=== PATIENT | male | born 1980 | race African-American/Black ===

== ENCOUNTER 2016-10-02 15:08 | Emergency (ER) | payer OTHER ==
[~2016-10-02] VITALS: Ht 180.3 cm; Wt 77.6 kg
[~2016-10-02 15:08] MED LIST: BLOO-125 IN; INSU100V28 SQ; INSU100V28 SUBCUT; NPH,100V2 SUBCUT
--- NOTE | 2016-10-02 15:27 | NUR ---
PT ELOPED AFTER PHYSICIAN NOTIFIED PT THAT HE WILL NOT BE RECEIVING ANY NARCOTICS. MD COUGHLIN IS AWARE.
[2016-10-02] MEDS ORDERED: LIDOCAINE VISCUS 2% 15 ML UDC MM ONE (15:30)
[2016-10-02] MEDS ORDERED: MAG HYDROX/AL HYDROX/SIMETH 30 ML LIQUID UDC PO ONE (15:30)
[2016-10-02] MEDS ORDERED: ONDANSETRON ODT 4 MG TAB.RAPDIS SL ONE (15:30)
[2016-10-02] MEDS ORDERED: FAMOTIDINE 20 MG TABLET PO ONE (15:30)
--- NOTE | 2016-10-02 15:34 | NUR ---
Patient eloped from facility. ER physician notified. Pt is ambulatory with steady gait. Speaking in full sentences. NAD noted.
[2016-10-02] MEDS ORDERED: ONDANSETRON ODT 4 MG TAB.RAPDIS ONE (15:36)
[2016-10-02] MEDS ORDERED: LIDOCAINE VISCUS 2% 15 ML UDC ONE (15:36)
[2016-10-02] MEDS ORDERED: MAG HYDROX/AL HYDROX/SIMETH 30 ML LIQUID UDC ONE (15:36)
[2016-10-02] MEDS ORDERED: FAMOTIDINE 20 MG TABLET ONE (15:36)
== END 2016-10-02 15:34 | disposition left against medical advice (07) ==
LOC: ER 15:10
DX: R10.9 Unspecified abdominal pain (principal)
CPT/HCPCS: A4663; Q0162

== ENCOUNTER 2017-07-07 10:21 | Emergency (ER) | payer OTHER ==
[~2017-07-07] VITALS: Ht 180.3 cm; Wt 77.6 kg
--- NOTE | 2017-07-07 10:27 | NUR ---
Dr Prescott at the bedside for MSE.
--- NOTE | 2017-07-07 10:35 | NUR ---
Pt states not wanting to continue w/ care as his discussion w/ ER MD. Left ER w/ steady gait and in no acute distres after argueing w/ MD.
[2017-07-07 10:40] VITALS: BP 152/96
== END 2017-07-07 10:40 | disposition home or self-care (01) ==
LOC: ER 10:21
DX: R10.84 Generalized abdominal pain (principal); E11.9 Type 2 diabetes mellitus without complications; F12.10 Cannabis abuse, uncomplicated; Z79.4 Long term (current) use of insulin; Z79.899 Other long term (current) drug therapy
CPT/HCPCS: A4663

== ENCOUNTER 2020-10-23 08:06 | Emergency (ER) | payer OTHER ==
[~2020-10-23] VITALS: Ht 180.3 cm; Wt 79.4 kg
[2020-10-23] MEDS ORDERED: ONDANSETRON 4 MG/2 ML VIAL IV ONE (08:30)
[2020-10-23] MEDS ORDERED: HYDROMORPHONE 1 MG/1 ML DISP.SYRIN IV ONE ×2 (08:30→10:25)
[2020-10-23] MEDS ORDERED: IV NORMAL SALINE 1000 ML BAG IV ONE (08:30)
--- NOTE | 2020-10-23 08:30 | NUR ---
Dr Sofia Grullon at bedside for MSE
[2020-10-23 08:31] LABS: HEMATOCRIT 39.3 % (36.7-47.1); MEAN CORPUSCULAR HEMOGLOBIN 31.3 uug (23.8-33.4); MEAN CORPUSCULAR VOLUME 92.9 fL (73.0-96.2); PLATELET COUNT (AUTO) 200 K/uL (152-348)
[2020-10-23 08:33] LABS: *BILIRUBIN,URIN NEGATIVE (NEGATIVE); *CLARITY,URINE CLEAR (CLEAR); *COLOR,URINE YELLOW (YELLOW); *KETONES,URINE NEGATIVE (NEGATIVE); *UROBILINOGEN,URINE 0.2 E.U./dl (NORMAL); LEUKOCYTE ESTERASE ,URINE NEGATIVE (NEGATIVE); NITRITE, URINE NEGATIVE (NEGATIVE); UGLUCOSE 2+ (NEGATIVE)
[2020-10-23] MEDS ORDERED: ONDANSETRON 4 MG/2 ML VIAL ONE (08:33)
[2020-10-23] MEDS ORDERED: HYDROMORPHONE 1 MG/1 ML DISP.SYRIN ONE ×2 (08:34→10:26)
[2020-10-23 08:41] LABS: *BLOOD, URINE TRACE (NEGATIVE)
[2020-10-23] MEDS ORDERED: IOHEXOL 300MG/ML 100 ML INFUS..BTL ONE (08:58)
[2020-10-23 08:59] LABS: BILIRUBIN,DIRECT 0.1 mg/dL (0.0-0.2); BILIRUBIN,TOTAL 0.2 mg/dL (0.2-1.0); CREATININE 1.2 mg/dL (0.6-1.3); POTASSIUM 4.1 mmol/L (3.5-5.1)
[2020-10-23] MEDS ORDERED: KETOROLAC TROMETHAMINE 15 MG INJ ONE (10:08)
[2020-10-23] MEDS ORDERED: INSULIN REGULAR, HUMAN 300 UNIT/3 ML VIAL SQ ONE (10:15)
[2020-10-23] MEDS ORDERED: KETOROLAC TROMETHAMINE 15 MG INJ IVP ONE (10:15)
[2020-10-23] MEDS ORDERED: INSULIN LISPRO 300 UNIT/3 ML VIAL SQ ONE (10:27)
[2020-10-23] MEDS ORDERED: INSULIN REGULAR, HUMAN 300 UNIT/3 ML VIAL ONE (10:28)
[2020-10-23 10:45] LABS: BACTERIA,URINE NONE SEEN /HPF (NONE SEEN); SQUAMOUS EPITHELIAL CELL,UR NONE SEEN /HPF (NONE SEEN); WBC,URINE NONE SEEN /HPF (0-3)
--- NOTE | 2020-10-23 10:45 | NUR ---
Pt's first dose of Dilaudid was effective for 1.5 hours, and patient started feeling pain. So, Toradol 15 mg PIV was ordered, no relief. Second dose of Dilaudid given as ordered. Pt stated feeling relief at this time. MD was at bedside explaining results of CT Scan.
[2020-10-23 10:46] LABS: RBC,URINE 0-3 /HPF (0-3)
[2020-10-23] MEDS ORDERED: ONDA4TAB5 PO (10:48)
[2020-10-23] MEDS ORDERED: HYDR-3980 PO (10:48)
--- NOTE | 2020-10-23 11:01 | NUR ---
Pt has been cleared for DC by ER MD. Patient discharged to home in stable condition. IV removed. Catheter intact and site benign. Pressure and 4x4 gauze applied to site. No bleeding noted. Written and verbal after care instructions given. Patient verbalizes understanding of instructions. Stressed follow up or return to ER for worsening s/s. Ambulated out of ED in steady gait.
[2020-10-23 11:04] VITALS: BP 135/70
== END 2020-10-23 11:10 | disposition home or self-care (01) ==
LOC: ER 08:06
DX: K86.1 Other chronic pancreatitis (principal); R10.13 Epigastric pain; R11.2 Nausea with vomiting, unspecified; E10.65 Type 1 diabetes mellitus with hyperglycemia
CPT/HCPCS: 36415; 74177; 80048; 80076; 81001; 82962; 83605; 83690; 85025; 96361; 96372; 96374; 96375; 96376; 99285; J1170 ×2; J1815; J1885; J2405; Q9967; A4663; J7030

== ENCOUNTER 2020-11-03 05:00 | Emergency (ER) | payer OTHER ==
[~2020-11-03] VITALS: Ht 180.3 cm; Wt 73.0 kg
[~2020-11-03 05:00] MED LIST changes: +HYDR-3980 PO; +ONDA4TAB5 PO
--- NOTE | 2020-11-03 05:05 | NUR ---
Patient came in with c/o abdominal pain with n/v. Patient states pain woke him up about 45mins [employer]. Has Hx of pancreatitis. PL:02/09. A/O x4, no SOB or labored breathing, afebrile.
--- NOTE | 2020-11-03 05:14 | NUR ---
Dr. Cintron at bedside, MSE in progress.
[2020-11-03] MEDS ORDERED: HYDROMORPHONE 1 MG/1 ML DISP.SYRIN IV ONE (05:30)
[2020-11-03] MEDS ORDERED: IV NORMAL SALINE 1000 ML BAG IV ONE (05:30)
[2020-11-03] MEDS ORDERED: IV NORMAL SALINE 250 ML IV ONE (05:39)
[2020-11-03] MEDS ORDERED: SWABABLE VALVE TRANSFER SET EA MC ONE (05:39)
[2020-11-03] MEDS ORDERED: IOHEXOL 300MG/ML 100 ML INFUS..BTL ONE (05:39)
[2020-11-03] MEDS ORDERED: HYDROMORPHONE 1 MG/1 ML DISP.SYRIN ONE (05:41)
[2020-11-03 05:42] LABS: HEMATOCRIT 46.7 % (36.7-47.1); MEAN CORPUSCULAR HEMOGLOBIN 31.1 uug (23.8-33.4); MEAN CORPUSCULAR VOLUME 94.5 fL (73.0-96.2); PLATELET COUNT (AUTO) 216 K/uL (152-348)
[2020-11-03] MEDS ORDERED: PROCHLORPERAZINE EDISYLATE 10 MG/2 ML VIAL IV ONE (05:45)
--- NOTE | 2020-11-03 05:46 | NUR ---
Pt taken down for CT.
[2020-11-03] MEDS ORDERED: PROCHLORPERAZINE EDISYLATE 10 MG/2 ML VIAL ONE (05:50)
[2020-11-03 05:55] LABS: BILIRUBIN,DIRECT 0.2 mg/dL (0.0-0.2); BILIRUBIN,TOTAL 0.6 mg/dL (0.2-1.0); CREATININE 1.5 mg/dL (0.6-1.3); POTASSIUM 4.4 mmol/L (3.5-5.1); TOTAL PROTEIN, SERUM 8.3 g/dL (6.4-8.2)
--- NOTE | 2020-11-03 06:03 | NUR ---
Pt returned from CT, stable condition.
[2020-11-03] MEDS ORDERED: PROC10TA29 PO (06:14)
[2020-11-03] MEDS ORDERED: HYDR-3980 PO (06:14)
[2020-11-03] MEDS ORDERED: METO-295 PO (06:14)
[2020-11-03] MEDS ORDERED: METOCLOPRAMIDE HCL 10 MG/2 ML VIAL IV ONE (06:15)
[2020-11-03] MEDS ORDERED: METOCLOPRAMIDE HCL 10 MG/2 ML VIAL ONE (06:22)
[2020-11-03 06:46] VITALS: BP 124/65
--- NOTE | 2020-11-03 06:46 | NUR ---
Patient discharged to home in stable condition. Written and verbal after care instructions given. Patient verbalizes understanding of instructions. Stressed follow up or return to ER for worsening s/s. A/O x4, denies any pain/discomfort at this time. Steady gait.
== END 2020-11-03 06:47 | disposition home or self-care (01) ==
LOC: ER 05:01
DX: E10.43 Type 1 diabetes mellitus with diabetic autonomic (poly)neuropathy (principal); K31.84 Gastroparesis; Z79.4 Long term (current) use of insulin; G89.29 Other chronic pain; R10.9 Unspecified abdominal pain
CPT/HCPCS: 36415; 74177; 80048; 80076; 83690; 85025; 96361; 96374; 96375; 99285; J0780; J1170; J2765; Q9967; 72193; A4663; J7030; J7050

== ENCOUNTER 2020-11-04 09:38 | Emergency (ER) | payer OTHER ==
[~2020-11-04] VITALS: Ht 180.3 cm; Wt 72.6 kg
[~2020-11-04 09:38] MED LIST changes: +METO-295 PO; +PROC10TA29 PO
[2020-11-04] MEDS ORDERED: ONDANSETRON 4 MG/2 ML VIAL IM ONE (10:00)
[2020-11-04] MEDS ORDERED: HYDROMORPHONE 1 MG/1 ML DISP.SYRIN IM ONE (10:00)
--- NOTE | 2020-11-04 10:00 | NUR ---
DR BATRES AT BEDSIDE FOR EVAL.
[2020-11-04] MEDS ORDERED: ONDANSETRON 4 MG/2 ML VIAL ONE (10:06)
[2020-11-04] MEDS ORDERED: HYDROMORPHONE 2 MG/1 ML DISP.SYRIN ONE (10:06)
--- NOTE | 2020-11-04 10:53 | NUR ---
Patient discharged to home in stable condition. Written and verbal after care instructions given. Patient verbalizes understanding of instructions. Stressed follow up or return to ER for worsening s/s.pt walks in steady gait. pt not driving
[2020-11-04 10:54] VITALS: BP 131/78
== END 2020-11-04 10:55 | disposition home or self-care (01) ==
LOC: ER 09:38
DX: K86.1 Other chronic pancreatitis (principal); E10.8 Type 1 diabetes mellitus with unspecified complications; Z79.4 Long term (current) use of insulin
CPT/HCPCS: 96372; 99283; J1170; J2405; A4663

== ENCOUNTER 2020-11-13 10:06 | Emergency (ER) | payer OTHER ==
[~2020-11-13] VITALS: Ht 180.3 cm; Wt 74.8 kg
[2020-11-13] MEDS ORDERED: HYDROMORPHONE 2 MG/1 ML DISP.SYRIN ONE ×2 (10:29→11:18)
[2020-11-13] MEDS ORDERED: ONDANSETRON 4 MG/2 ML VIAL ONE ×2 (10:29→11:19)
[2020-11-13] MEDS ORDERED: ONDANSETRON 4 MG/2 ML VIAL IV ONE ×2 (10:30→11:15)
[2020-11-13] MEDS ORDERED: IV NORMAL SALINE 1000 ML BAG IV ONE (10:30)
[2020-11-13] MEDS ORDERED: HYDROMORPHONE 1 MG/1 ML DISP.SYRIN IV ONE ×2 (10:30→11:15)
[2020-11-13 10:52] LABS: HEMATOCRIT 41.3 % (36.7-47.1); MEAN CORPUSCULAR HEMOGLOBIN 31.4 uug (23.8-33.4); PLATELET COUNT (AUTO) 187 K/uL (152-348)
[2020-11-13 11:02] LABS: CREATININE 1.1 mg/dL (0.6-1.3); POTASSIUM 4.4 mmol/L (3.5-5.1)
[2020-11-13 11:09] LABS: BILIRUBIN,DIRECT 0.1 mg/dL (0.0-0.2); BILIRUBIN,TOTAL 0.2 mg/dL (0.2-1.0); TOTAL PROTEIN, SERUM 6.2 g/dL (6.4-8.2)
--- NOTE | 2020-11-13 11:25 | NUR ---
Patient discharged to home in stable condition. Written and verbal after care instructions given. Patient verbalizes understanding of instructions. Stressed follow up or return to ER for worsening s/s. pt walks in steady gait. pt used uber for ride home.
[2020-11-13 11:26] VITALS: BP 129/81
== END 2020-11-13 11:26 | disposition home or self-care (01) ==
LOC: ER 10:06
DX: E10.65 Type 1 diabetes mellitus with hyperglycemia (principal); Z79.4 Long term (current) use of insulin; Z83.3 Family history of diabetes mellitus; G89.29 Other chronic pain; R10.13 Epigastric pain
CPT/HCPCS: 36415; 80048; 80076; 83690; 85025; 96361; 96374; 96375; 96376; 99284; J1170 ×2; J2405 ×2; A4663; J7030

== ENCOUNTER 2020-11-29 10:49 | Emergency (ER) | payer OTHER ==
[~2020-11-29] VITALS: Ht 180.3 cm; Wt 74.8 kg
--- NOTE | 2020-11-29 10:49 | NUR ---
PT BIB [facility] C/O ABDOMINAL PAIN, ON ARRIVAL PT SCREAMING, ACTING RESTLESS AND LOOKING AROUND TO SEE WHO ARE THE STAFF AND ASKED WHO IS THE DR TODAY, WHICH IS PT'S USUAL BEHAVIOR WHEN HE COMES TO ER ON MULTIPLE PREVIOUS VISITS.
--- NOTE | 2020-11-29 11:20 | NUR ---
pt screaming, threatening and acting bizzare to get iv narcotics. Er md at bedside.
[2020-11-29] MEDS ORDERED: HYDROCODONE/APAP 10-325 MG TABLET ONE (11:25)
--- NOTE | 2020-11-29 11:25 | NUR ---
PT ELOPED, PT WALKS IN STEADY GAIT, WALKING NORMALLY.
[2020-11-29] MEDS ORDERED: HYDROCODONE/APAP 10-325 MG TABLET PO ONE (11:30)
--- NOTE | 2020-11-29 11:32 | NUR ---
PT WALKED BACK IN THE ROOM WALKING NORMALLY, NO SIGHN OF DISTRESS, LOOKING FOR HIS HAT. PT MENTIONED THAT HE IS GOING TO HIS WORK.
== END 2020-11-29 11:32 | disposition left against medical advice (07) ==
LOC: ER 10:49
DX: G89.29 Other chronic pain (principal); R10.9 Unspecified abdominal pain; Z79.4 Long term (current) use of insulin; Z83.3 Family history of diabetes mellitus; E10.9 Type 1 diabetes mellitus without complications
CPT/HCPCS: A4663; J7030

== ENCOUNTER 2020-12-08 08:04 | Emergency (ER) | payer OTHER ==
[~2020-12-08] VITALS: Ht 180.3 cm; Wt 74.8 kg
--- NOTE | 2020-12-08 08:17 | NUR ---
PT ASKED WHO THE DOCTOR IS FOR THE DAY, AND WAS INFORMED IT IS DR GONSALES, WHO COINCIDENTALLY SAW HIM 11/29/20 - SIMILAR EPISODE - ABD PAIN, BROUGHT IN BY RESCUE-; PT DECIDED THEN AND STATED THAT HE IS FEELING BETTER AND WALKED OUT.
== END 2020-12-08 08:23 | disposition left against medical advice (07) ==
LOC: ER 08:04
DX: Z53.21 Procedure and treatment not carried out due to patient leaving prior to being seen by health care provider (principal)

== ENCOUNTER 2020-12-10 08:26 | Emergency (ER) | payer OTHER ==
[~2020-12-10] VITALS: Ht 175.3 cm; Wt 70.8 kg
[2020-12-10] MEDS ORDERED: HYDROMORPHONE 1 MG/1 ML DISP.SYRIN IV ONE (08:30)
[2020-12-10] MEDS ORDERED: IV NORMAL SALINE 1000 ML BAG IV ONE (08:30)
[2020-12-10] MEDS ORDERED: ONDANSETRON 4 MG/2 ML VIAL IV ONE (08:30)
[2020-12-10 08:43] LABS: HEMATOCRIT 39.5 % (36.7-47.1); MEAN CORPUSCULAR HEMOGLOBIN 31.5 uug (23.8-33.4); MEAN CORPUSCULAR VOLUME 93.2 fL (73.0-96.2); PLATELET COUNT (AUTO) 191 K/uL (152-348)
[2020-12-10] MEDS ORDERED: IV NS 1000 ML 1,000 ML IV ONE (08:45)
[2020-12-10] MEDS ORDERED: ONDANSETRON 4 MG/2 ML VIAL ONE (08:47)
[2020-12-10] MEDS ORDERED: HYDROMORPHONE 2 MG/1 ML DISP.SYRIN ONE (08:47)
[2020-12-10 08:48] LABS: CREATININE 1.3 mg/dL (0.6-1.3)
[2020-12-10 08:54] LABS: BILIRUBIN,DIRECT 0.1 mg/dL (0.0-0.2); BILIRUBIN,TOTAL 0.3 mg/dL (0.2-1.0); TOTAL PROTEIN, SERUM 6.8 g/dL (6.4-8.2)
[2020-12-10] MEDS ORDERED: INSULIN GLARGINE,HUM 300 UNITS/3 ML CARTRIDGE SQ SCH (09:15)
[2020-12-10] MEDS ORDERED: INSULIN GLARGINE,HUM 300 UNITS/3 ML CARTRIDGE SQ ONE (09:28)
[2020-12-10 09:35] LABS: *BILIRUBIN,URIN NEGATIVE (NEGATIVE); *CLARITY,URINE CLEAR (CLEAR); *COLOR,URINE YELLOW (YELLOW); *KETONES,URINE NEGATIVE (NEGATIVE); *UROBILINOGEN,URINE 0.2 E.U./dl (NORMAL); LEUKOCYTE ESTERASE ,URINE NEGATIVE (NEGATIVE); NITRITE, URINE NEGATIVE (NEGATIVE)
[2020-12-10 09:38] LABS: *BLOOD, URINE TRACE (NEGATIVE); UGLUCOSE 3+ (NEGATIVE)
[2020-12-10] MEDS ORDERED: HYDR-3980 PO (09:58)
[2020-12-10] MEDS ORDERED: PROC-11 PO (09:58)
[2020-12-10] MEDS ORDERED: METO-295 PO (09:58)
[2020-12-10] MEDS ORDERED: CIPR-262 PO (09:58)
[2020-12-10] MEDS ORDERED: METR500T PO (09:58)
--- NOTE | 2020-12-10 10:15 | NUR ---
Patient discharged to home in stable condition. Written and verbal after care instructions given. Patient verbalizes understanding of instructions. Stressed follow up or return to ER for worsening s/s.PT WALKS IN STEADY GAIT, PAIN DOWN TO TOLERALABLE LEVEL. PT NOT DRIVING
[2020-12-10 10:36] VITALS: BP 139/88
[2020-12-10 12:39] LABS: BACTERIA,URINE NONE SEEN /HPF (NONE SEEN); RBC,URINE 0-3 /HPF (0-3); SQUAMOUS EPITHELIAL CELL,UR NONE SEEN /HPF (NONE SEEN); WBC,URINE NONE SEEN /HPF (0-3)
== END 2020-12-10 10:15 | disposition home or self-care (01) ==
LOC: ER 08:26
DX: R10.9 Unspecified abdominal pain (principal); E10.65 Type 1 diabetes mellitus with hyperglycemia; Z79.4 Long term (current) use of insulin; G89.29 Other chronic pain; K52.9 Noninfective gastroenteritis and colitis, unspecified; I51.7 Cardiomegaly
CPT/HCPCS: 36415; 74176; 76705; 80048; 80076; 81001; 83605; 83690; 85025; 93005; 96361; 96372; 96374; 96375; 99285; J1170; J1815; J2405; A4663

== ENCOUNTER 2020-12-13 03:04 | Emergency (ER) | payer OTHER ==
[~2020-12-13] VITALS: Ht 180.3 cm; Wt 74.8 kg
[~2020-12-13 03:04] MED LIST changes: +CIPR-262 PO; +METR500T PO; +PROC-11 PO
[2020-12-13] MEDS ORDERED: ONDANSETRON ODT 4 MG TAB.RAPDIS SL ONE (03:30)
[2020-12-13] MEDS ORDERED: HYDROMORPHONE HCL 2 MG TABLET PO ONE (03:30)
[2020-12-13] MEDS ORDERED: HYDROMORPHONE HCL 2 MG TABLET ONE (03:40)
[2020-12-13] MEDS ORDERED: ONDANSETRON ODT 4 MG TAB.RAPDIS ONE (03:40)
[2020-12-13 03:46] LABS: HEMATOCRIT 38.4 % (36.7-47.1); MEAN CORPUSCULAR HEMOGLOBIN 31.2 uug (23.8-33.4); MEAN CORPUSCULAR VOLUME 92.8 fL (73.0-96.2); PLATELET COUNT (AUTO) 171 K/uL (152-348)
[2020-12-13 04:10] LABS: BILIRUBIN,DIRECT 0.1 mg/dL (0.0-0.2); BILIRUBIN,TOTAL 0.6 mg/dL (0.2-1.0); CREATININE 1.3 mg/dL (0.6-1.3); POTASSIUM 4.3 mmol/L (3.5-5.1)
[2020-12-13] MEDS ORDERED: INSULIN REGULAR, HUMAN 300 UNIT/3 ML VIAL SQ ONE (04:30)
--- NOTE | 2020-12-13 04:30 | NUR ---
Patient is resting comfortably in bed with eyes closed, no acute distress noted.
[2020-12-13] MEDS ORDERED: HYDR-3980 PO (04:31)
[2020-12-13] MEDS ORDERED: ONDA4TAB5 PO (04:31)
[2020-12-13] MEDS ORDERED: INSULIN REGULAR, HUMAN 300 UNIT/3 ML VIAL ONE (04:47)
--- NOTE | 2020-12-13 04:49 | NUR ---
Clarification of regular insulin 10-unit injection site, site is not RIGHT DELTOID (selected d/t limited options on injection site), it is posterior right upper arm into the subcutaneous tissure present there at patient request.
[2020-12-13 04:51] VITALS: BP 142/88
--- NOTE | 2020-12-13 04:51 | NUR ---
Patient discharged to home in stable condition. Written and verbal after care instructions given. Patient verbalizes understanding of instructions. Stressed follow up or return to ER for worsening s/s. Patient ambulates with steady gait, V/S stable, paper Rx given, and left with all personal belongings.
== END 2020-12-13 04:51 | disposition home or self-care (01) ==
LOC: ER 03:08
DX: G89.29 Other chronic pain (principal); R10.9 Unspecified abdominal pain; E11.65 Type 2 diabetes mellitus with hyperglycemia; Z79.4 Long term (current) use of insulin; Z83.3 Family history of diabetes mellitus
CPT/HCPCS: 36415; 80048; 80076; 83690; 85025; 96372; 99283; J1815; A4663; Q0162

== ENCOUNTER 2020-12-30 14:49 | Emergency (ER) | payer OTHER ==
[~2020-12-30] VITALS: Ht 180.3 cm; Wt 74.8 kg
[2020-12-30] MEDS ORDERED: KETOROLAC TROMETHAMINE 60 MG INJ IM ONE ×2 (18:15→18:27)
[2020-12-30 18:23] LABS: *BILIRUBIN,URIN NEGATIVE (NEGATIVE); *BLOOD, URINE TRACE (NEGATIVE); *CLARITY,URINE CLEAR (CLEAR); *COLOR,URINE YELLOW (YELLOW); *KETONES,URINE TRACE (NEGATIVE); *UROBILINOGEN,URINE 0.2 E.U./dl (NORMAL); LEUKOCYTE ESTERASE ,URINE NEGATIVE (NEGATIVE); NITRITE, URINE NEGATIVE (NEGATIVE); UGLUCOSE 2+ (NEGATIVE)
[2020-12-30 18:30] LABS: HEMATOCRIT 37.8 % (36.7-47.1); MEAN CORPUSCULAR HEMOGLOBIN 31.2 uug (23.8-33.4); MEAN CORPUSCULAR VOLUME 93.9 fL (73.0-96.2); PLATELET COUNT (AUTO) 193 K/uL (152-348)
[2020-12-30 18:35] LABS: CREATININE 1.4 mg/dL (0.6-1.3); POTASSIUM 4.7 mmol/L (3.5-5.1)
[2020-12-30 18:42] LABS: BILIRUBIN,DIRECT 0.1 mg/dL (0.0-0.2); BILIRUBIN,TOTAL 0.4 mg/dL (0.2-1.0)
[2020-12-30 18:43] LABS: TOTAL PROTEIN, SERUM 7.1 g/dL (6.4-8.2)
[2020-12-30] MEDS ORDERED: IV NS 1000 ML 1,000 ML IV ONE (19:15)
[2020-12-30] MEDS ORDERED: HYDROMORPHONE 1 MG/1 ML DISP.SYRIN IV ONE ×2 (19:30→21:45)
[2020-12-30] MEDS ORDERED: METOCLOPRAMIDE HCL 10 MG/2 ML VIAL IV ONE (19:30)
[2020-12-30] MEDS ORDERED: HYDROMORPHONE 1 MG/1 ML DISP.SYRIN ONE (19:43)
[2020-12-30] MEDS ORDERED: METOCLOPRAMIDE HCL 10 MG/2 ML VIAL ONE (19:43)
--- NOTE | 2020-12-30 20:09 | NUR ---
Patient is resting comfortably in bed, using phone. No acute distress noted.
[2020-12-30 20:23] LABS: BACTERIA,URINE NONE SEEN /HPF (NONE SEEN); SQUAMOUS EPITHELIAL CELL,UR FEW /HPF (NONE SEEN); WBC,URINE 0-3 /HPF (0-3)
[2020-12-30] MEDS ORDERED: METO-295 PO (20:49)
[2020-12-30] MEDS ORDERED: OXYC-128 PO (20:49)
[2020-12-30 21:53] VITALS: BP 136/82
--- NOTE | 2020-12-30 21:53 | NUR ---
Patient discharged to home in stable condition. Written and verbal after care instructions given. Patient verbalizes understanding of instructions. Stressed follow up or return to ER for worsening s/s. Patient ambulates with steady gait, IV line removed, V/S stable, received paper Rx, and left with all personal belongings.
[2020-12-30] MEDS ORDERED: HYDROMORPHONE 2 MG/1 ML DISP.SYRIN ONE (21:54)
== END 2020-12-30 21:53 | disposition home or self-care (01) ==
LOC: ER 14:49
DX: R10.10 Upper abdominal pain, unspecified (principal); R11.10 Vomiting, unspecified; E10.9 Type 1 diabetes mellitus without complications
CPT/HCPCS: 36415; 80048; 80076; 81001; 83690; 85025; 96361; 96372; 96374; 96375; 96376; 99285; J1170 ×2; J1885; J2765; J7030

== ENCOUNTER 2022-08-25 12:57 | Inpatient (IN) | payer OTHER ==
[~2022-08-25] VITALS: Ht 180.3 cm; Wt 74.8 kg
[2022-08-25 08:20] VITALS: BP 134/81
[~2022-08-25 12:57] MED LIST changes: +OXYC-128 PO
[2022-08-25] MEDS ORDERED: MORPHINE SULFATE 2 MG/1 ML DISP.SYRIN IV ONE (13:30)
[2022-08-25] MEDS ORDERED: VANCOMYCIN IV 1,000 MG in IV DEXTROSE 5% 250 ML IV ONE (13:30)
[2022-08-25] MEDS ORDERED: ONDANSETRON 4 MG/2 ML VIAL IV ONE (13:30)
[2022-08-25] MEDS ORDERED: IV NORMAL SALINE 1000 ML BAG IV ONE (13:30)
[2022-08-25] MEDS ORDERED: PIPERACILLIN SODIUM/TAZOBACTAM 3.375 G in IV DEXTROSE 5% 50 ML IV ONE (13:30)
[2022-08-25] MEDS ORDERED: MORPHINE SULFATE 4 MG/1 ML DISP.SYRIN ONE ×2 (13:50→14:51)
[2022-08-25] MEDS ORDERED: ONDANSETRON 4 MG/2 ML VIAL ONE (13:50)
[2022-08-25 13:52] LABS: MEAN CORPUSCULAR HEMOGLOBIN 32.1 uug (23.8-33.4); MEAN CORPUSCULAR VOLUME 96.3 fL (73.0-96.2); PLATELET COUNT (AUTO) 146 K/uL (152-348)
[2022-08-25] MEDS ORDERED: VANCOMYCIN IV 200 ML ONE (14:07)
[2022-08-25] MEDS ORDERED: PIPERACILLIN/TAZOBACTAM/D5W 50 ML IV ONE (14:07)
[2022-08-25 14:12] LABS: BILIRUBIN,DIRECT 0.1 mg/dL (0.0-0.2); BILIRUBIN,TOTAL 0.2 mg/dL (0.2-1.0); CREATININE 1.4 mg/dL (0.6-1.3); POTASSIUM 4.2 mmol/L (3.5-5.1); TOTAL PROTEIN, SERUM 6.3 g/dL (6.4-8.2)
[2022-08-25 14:35] LABS: *BILIRUBIN,URIN NEGATIVE (NEGATIVE); *CLARITY,URINE CLEAR (CLEAR); *COLOR,URINE YELLOW (YELLOW); *KETONES,URINE NEGATIVE (NEGATIVE); *UROBILINOGEN,URINE 0.2 E.U./dl (NORMAL); LEUKOCYTE ESTERASE ,URINE NEGATIVE (NEGATIVE); NITRITE, URINE NEGATIVE (NEGATIVE); PH,URINE 6.5 (5.0-8.0); UGLUCOSE NEGATIVE (NEGATIVE)
[2022-08-25 14:37] LABS: *BLOOD, URINE TRACE (NEGATIVE)
[2022-08-25] MEDS ORDERED: MORPHINE SULFATE 4 MG/1 ML DISP.SYRIN IV ONE (15:00)
[2022-08-25] MEDS ORDERED: ACETAMINOPHEN 325 MG TABLET PO PRN (17:00)
[2022-08-25] MEDS ORDERED: MAGNESIUM HYDROXIDE 30 ML LIQUID UDC PO PRN (17:00)
[2022-08-25] MEDS ORDERED: MORPHINE SULFATE 2 MG/1 ML DISP.SYRIN IV PRN (17:00)
[2022-08-25] MEDS ORDERED: INSU100V7 SQ (19:15)
[2022-08-25] MEDS: IV 1/2NS 1000 ML 1,000 ML IV PRN (20:33)
[2022-08-25] MEDS: HYDROCODONE/APAP 10-325 MG TABLET PO PRN (20:36)
[2022-08-25] MEDS: BLOOD SUGAR DIAGNOSTIC 1 EACH STRIP VI SCH (20:41)
[2022-08-25] MEDS ORDERED: PIPERACILLIN SODIUM/TAZOBACTAM 3.375 G in IV DEXTROSE 5% 50 ML IV SCH (22:00)
[2022-08-25] MEDS: PIPERACILLIN SODIUM/TAZOBACTAM 3.375 G in IV DEXTROSE 5% 100 ML IV SCH (22:12)
[2022-08-25] MEDS: HYDROMORPHONE 1 MG/1 ML DISP.SYRIN IV PRN (22:36)
[2022-08-26] MEDS ORDERED: VANCOMYCIN IV 200 ML ONE (00:50)
[2022-08-26] MEDS: DEXTROSE 50% 50 ML DISP.SYRIN IV PRN ×3 (01:29→13:11)
[2022-08-26] MEDS: HYDROMORPHONE 1 MG/1 ML DISP.SYRIN IV PRN ×6 (02:39→22:53)
[2022-08-26] MEDS: ONDANSETRON 4 MG/2 ML VIAL IV PRN ×2 (02:47→22:54)
[2022-08-26] MEDS ORDERED: VANCOMYCIN IV 1,000 MG in IV DEXTROSE 5% 250 ML IV SCH (03:00)
[2022-08-26 04:20] VITALS: BP 155/67
[2022-08-26] MEDS: PIPERACILLIN SODIUM/TAZOBACTAM 3.375 G in IV DEXTROSE 5% 100 ML IV SCH ×3 (05:32→21:51)
[2022-08-26] MEDS ORDERED: DEXTROSE 50% 50 ML DISP.SYRIN ONE (05:55)
[2022-08-26] MEDS: PANTOPRAZOLE SODIUM 40 MG TABLET.DR PO SCH (06:25)
[2022-08-26] MEDS: BLOOD SUGAR DIAGNOSTIC 1 EACH STRIP VI SCH ×4 (06:38→21:03)
[2022-08-26 07:18] LABS: MEAN CORPUSCULAR HEMOGLOBIN 32.6 uug (23.8-33.4); MEAN CORPUSCULAR VOLUME 96.2 fL (73.0-96.2); PLATELET COUNT (AUTO) 164 K/uL (152-348)
[2022-08-26 07:55] LABS: BILIRUBIN,TOTAL 0.3 mg/dL (0.2-1.0); CREATININE 1.1 mg/dL (0.6-1.3); MAGNESIUM 1.8 mg/dL (1.8-2.4); PHOSPHOROUS 3.5 mg/dL (2.5-4.9); POTASSIUM 3.9 mmol/L (3.5-5.1); TOTAL PROTEIN, SERUM 7.9 g/dL (6.4-8.2)
[2022-08-26 09:54] LABS: BACTERIA,URINE NONE SEEN /HPF (NONE SEEN); SQUAMOUS EPITHELIAL CELL,UR NONE SEEN /HPF (NONE SEEN); WBC,URINE NONE SEEN /HPF (0-3)
[2022-08-26] MEDS: diphenhydrAMINE 50 MG/1 ML VIAL IV PRN ×2 (10:17→17:54)
[2022-08-26] MEDS: INSULIN REGULAR, HUMAN 300 UNIT/3 ML VIAL SQ PRN ×2 (10:47→21:09)
[2022-08-26] MEDS: VANCOMYCIN IV 1,250 MG in IV DEXTROSE 5% 250 ML IV SCH (18:37)
[2022-08-26] MEDS: HYDROCODONE/APAP 10-325 MG TABLET PO PRN (19:44)
[2022-08-26 20:00] VITALS: BP 169/77
[2022-08-27] MEDS: diphenhydrAMINE 50 MG/1 ML VIAL IV PRN ×4 (00:49→22:50)
[2022-08-27 01:06] LABS: *CREATININE,URINE 30.7 mg/dL (30-125); *URINE TOTAL PROTEIN RANDOM 31.8 mg/dL (<150/24HR)
[2022-08-27 01:38] LABS: *BILIRUBIN,URIN NEGATIVE (NEGATIVE); *BLOOD, URINE 1+ (NEGATIVE); *CLARITY,URINE CLEAR (CLEAR); *COLOR,URINE YELLOW (YELLOW); *KETONES,URINE NEGATIVE (NEGATIVE); *UROBILINOGEN,URINE 0.2 E.U./dl (NORMAL); LEUKOCYTE ESTERASE ,URINE NEGATIVE (NEGATIVE); NITRITE, URINE NEGATIVE (NEGATIVE); UGLUCOSE NEGATIVE (NEGATIVE)
[2022-08-27] MEDS: HYDROMORPHONE 1 MG/1 ML DISP.SYRIN IV PRN ×7 (03:00→22:38)
[2022-08-27] MEDS: ONDANSETRON 4 MG/2 ML VIAL IV PRN ×4 (03:00→22:50)
[2022-08-27] MEDS: VANCOMYCIN IV 1,250 MG in IV DEXTROSE 5% 250 ML IV SCH (03:06)
[2022-08-27 03:48] LABS: BACTERIA,URINE NONE SEEN /HPF (NONE SEEN); SQUAMOUS EPITHELIAL CELL,UR NONE SEEN /HPF (NONE SEEN); WBC,URINE NONE SEEN /HPF (0-3)
[2022-08-27] MEDS: IV 1/2NS 1000 ML 1,000 ML IV PRN (04:04)
[2022-08-27 04:37] VITALS: BP 154/82
[2022-08-27] MEDS: BLOOD SUGAR DIAGNOSTIC 1 EACH STRIP VI SCH ×5 (06:45→21:59)
[2022-08-27 07:01] LABS: CREATININE 1.3 mg/dL (0.6-1.3); POTASSIUM 4.6 mmol/L (3.5-5.1)
[2022-08-27] MEDS: PIPERACILLIN SODIUM/TAZOBACTAM 3.375 G in IV DEXTROSE 5% 100 ML IV SCH (07:55)
[2022-08-27] MEDS: PANTOPRAZOLE SODIUM 40 MG TABLET.DR PO SCH (07:56)
[2022-08-27] MEDS: CADEXOMER IODINE 40 GM TUBE TOP SCH (08:23)
[2022-08-27] MEDS: INSULIN REGULAR, HUMAN 300 UNIT/3 ML VIAL SQ PRN ×4 (08:24→20:58)
[2022-08-27 11:00] VITALS: BP 132/98
[2022-08-27] MEDS: PIPERACILLIN SODIUM/TAZOBACTAM 3.375 G in IV DEXTROSE 5% 50 ML IV SCH ×2 (14:40→20:03)
[2022-08-27] MEDS: VANCOMYCIN IV 1,000 MG in IV DEXTROSE 5% 250 ML IV SCH (15:36)
[2022-08-27 15:51] VITALS: BP 149/85
[2022-08-27] MEDS: HYDROCODONE/APAP 10-325 MG TABLET PO PRN (19:58)
[2022-08-27 20:00] VITALS: BP 161/100
[2022-08-28] MEDS: HYDROMORPHONE 1 MG/1 ML DISP.SYRIN IV PRN ×4 (01:48→13:59)
[2022-08-28] MEDS: PIPERACILLIN SODIUM/TAZOBACTAM 3.375 G in IV DEXTROSE 5% 50 ML IV SCH ×3 (01:52→13:37)
[2022-08-28] MEDS: VANCOMYCIN IV 1,000 MG in IV DEXTROSE 5% 250 ML IV SCH (03:11)
[2022-08-28 04:00] VITALS: BP 156/86
[2022-08-28] MEDS: INSULIN REGULAR, HUMAN 300 UNIT/3 ML VIAL SQ PRN (05:22)
[2022-08-28] MEDS: ONDANSETRON 4 MG/2 ML VIAL IV PRN ×2 (05:29→11:33)
[2022-08-28] MEDS: diphenhydrAMINE 50 MG/1 ML VIAL IV PRN ×2 (05:29→11:34)
[2022-08-28] MEDS ORDERED: INSULIN REGULAR, HUMAN 300 UNIT/3 ML VIAL SQ ONE (05:45)
[2022-08-28] MEDS: PANTOPRAZOLE SODIUM 40 MG TABLET.DR PO SCH (06:09)
[2022-08-28 06:30] LABS: HEMATOCRIT 39.1 % (36.7-47.1); MEAN CORPUSCULAR HEMOGLOBIN 31.9 uug (23.8-33.4); MEAN CORPUSCULAR VOLUME 95.6 fL (73.0-96.2); PLATELET COUNT (AUTO) 175 K/uL (152-348)
[2022-08-28] MEDS: BLOOD SUGAR DIAGNOSTIC 1 EACH STRIP VI SCH ×2 (06:37→11:07)
[2022-08-28 06:51] LABS: BILIRUBIN,TOTAL 0.5 mg/dL (0.2-1.0); CREATININE 1.6 mg/dL (0.6-1.3); MAGNESIUM 1.7 mg/dL (1.8-2.4); PHOSPHOROUS 3.1 mg/dL (2.5-4.9); POTASSIUM 5.1 mmol/L (3.5-5.1); TOTAL PROTEIN, SERUM 6.9 g/dL (6.4-8.2)
[2022-08-28] MEDS: HYDROCODONE/APAP 10-325 MG TABLET PO PRN (08:22)
[2022-08-28] MEDS: CADEXOMER IODINE 40 GM TUBE TOP SCH (08:52)
[2022-08-28] MEDS ORDERED: MAGNESIUM OXIDE 400 MG TABLET PO ONE (11:00)
[2022-08-28 11:04] VITALS: BP 136/93
[2022-08-28] MEDS ORDERED: LEVO500T90 PO (13:55)
[2022-08-28] MEDS ORDERED: SULF1TAB48 PO (13:55)
[2022-08-28] MEDS ORDERED: VANCOMYCIN IV 750 MG in IV DEXTROSE 5% 250 ML IV SCH (15:00)
== END 2022-08-28 15:20 | disposition home or self-care (01) | DRG 317 ==
LOC: ER 12:57 → MEDSURG3 14:49
PROVIDERS: ADMIT Internal Medicine; ATTEND Internal Medicine
PROC: 0KB Muscles, Excision (ICD-10-PCS; principal; 2022-08-26)
PROC: 05H933Z Insertion of Infusion Device into Right Brachial Vein, Percutaneous Approach (ICD-10-PCS; principal; 2022-08-26)
DX: E10.621 Type 1 diabetes mellitus with foot ulcer (principal); M86.8X7 Other osteomyelitis, ankle and foot; N17.0 Acute kidney failure with tubular necrosis; E10.42 Type 1 diabetes mellitus with diabetic polyneuropathy; D69.6 Thrombocytopenia, unspecified; K31.84 Gastroparesis; E10.43 Type 1 diabetes mellitus with diabetic autonomic (poly)neuropathy; L03.031 Cellulitis of right toe; L97.518 Non-pressure chronic ulcer of other part of right foot with other specified severity; Z79.4 Long term (current) use of insulin; E10.69 Type 1 diabetes mellitus with other specified complication; D53.9 Nutritional anemia, unspecified; E10.65 Type 1 diabetes mellitus with hyperglycemia; Z87.81 Personal history of (healed) traumatic fracture; F10.11 Alcohol abuse, in remission; K86.1 Other chronic pancreatitis; Z20.822 Contact with and (suspected) exposure to COVID-19; Z83.3 Family history of diabetes mellitus; G89.29 Other chronic pain; E10.649 Type 1 diabetes mellitus with hypoglycemia without coma; T38.3X5A Adverse effect of insulin and oral hypoglycemic [antidiabetic] drugs, initial encounter; Y92.230 Patient room in hospital as the place of occurrence of the external cause
CPT/HCPCS: 36415; 71045; 73630; 83690; 83735; 84100; 84300; 85025; 85651; 86140; 87040; 93005; A4663; G0378; J1170; J1200; J1815; J2270; J2405; J2543; J3370; J3490; J7040; J7050

== ENCOUNTER 2022-11-10 07:25 | Emergency (ER) | payer OTHER ==
[~2022-11-10] VITALS: Ht 180.3 cm; Wt 79.8 kg
[~2022-11-10 07:25] MED LIST changes: -BLOO-125 IN; -CIPR-262 PO; -HYDR-3980 PO; -INSU100V28 SQ; -INSU100V28 SUBCUT; +INSU100V7 SQ; +LEVO500T90 PO; -METO-295 PO; -METR500T PO; -NPH,100V2 SUBCUT; -OXYC-128 PO; -PROC-11 PO; -PROC10TA29 PO; +SULF1TAB48 PO
--- NOTE | 2022-11-10 07:34 | NUR ---
Pt triaged at [id number]
[2022-11-10] MEDS ORDERED: ONDANSETRON 4 MG/2 ML VIAL IV ONE (07:45)
[2022-11-10] MEDS ORDERED: FAMOTIDINE. 20 MG/2 ML VIAL IV ONE ×2 (07:45→08:02)
[2022-11-10] MEDS ORDERED: MORPHINE SULFATE 2 MG/1 ML DISP.SYRIN IV ONE (07:45)
[2022-11-10] MEDS ORDERED: LIDOCAINE VISCUS 2% 15 ML UDC MM ONE (07:45)
[2022-11-10] MEDS ORDERED: IV NORMAL SALINE 1000 ML BAG IV ONE (07:45)
[2022-11-10] MEDS ORDERED: ACETAMINOPHEN ES 500 MG TABLET PO ONE (07:45)
[2022-11-10] MEDS ORDERED: MAG HYDROX/AL HYDROX/SIMETH 30 ML LIQUID UDC PO ONE (07:45)
[2022-11-10 08:02] LABS: HEMATOCRIT 38.3 % (36.7-47.1); MEAN CORPUSCULAR HEMOGLOBIN 31.9 uug (23.8-33.4); MEAN CORPUSCULAR VOLUME 94.9 fL (73.0-96.2); PLATELET COUNT (AUTO) 189 K/uL (152-348)
[2022-11-10] MEDS ORDERED: MAG HYDROX/AL HYDROX/SIMETH 30 ML LIQUID UDC ONE (08:02)
[2022-11-10] MEDS ORDERED: ACETAMINOPHEN ES 500 MG TABLET ONE (08:02)
[2022-11-10] MEDS ORDERED: ONDANSETRON 4 MG/2 ML VIAL ONE (08:02)
[2022-11-10] MEDS ORDERED: MORPHINE SULFATE 4 MG/1 ML DISP.SYRIN ONE (08:03)
[2022-11-10] MEDS ORDERED: PANT20TA2 PO (08:05)
[2022-11-10] MEDS ORDERED: IOHEXOL 300MG/ML 100 ML INFUS..BTL ONE (08:21)
[2022-11-10] MEDS ORDERED: SWABABLE VALVE TRANSFER SET EA MC ONE (08:22)
[2022-11-10] MEDS ORDERED: IV NORMAL SALINE 250 ML IV ONE (08:22)
--- NOTE | 2022-11-10 08:25 | NUR ---
42 years old male alert, oriented x4 biba c/o abdominal pain d/t pancreatitis flare up.
[2022-11-10 08:39] LABS: BILIRUBIN,DIRECT 0.1 mg/dL (0.0-0.2); BILIRUBIN,TOTAL 0.2 mg/dL (0.2-1.0); CREATININE 1.3 mg/dL (0.6-1.3); POTASSIUM 3.5 mmol/L (3.5-5.1); TOTAL PROTEIN, SERUM 6.6 g/dL (6.4-8.2)
[2022-11-10 08:43] LABS: *OCCULT BLOOD STOOL NEGATIVE (NEGATIVE)
[2022-11-10] MEDS ORDERED: DEXTROSE 50% 50 ML DISP.SYRIN IV ONE (09:00)
[2022-11-10] MEDS ORDERED: diphenhydrAMINE 50 MG/1 ML VIAL IV ONE (09:00)
[2022-11-10] MEDS ORDERED: diphenhydrAMINE 50 MG/1 ML VIAL ONE (09:03)
[2022-11-10] MEDS ORDERED: DEXTROSE 50% 50 ML DISP.SYRIN ONE (09:04)
--- NOTE | 2022-11-10 09:13 | NUR ---
patient went to ct, no nausea, vomiting, diarrhea.
[2022-11-10 09:42] LABS: *BILIRUBIN,URIN NEGATIVE (NEGATIVE); *CLARITY,URINE CLEAR (CLEAR); *COLOR,URINE YELLOW (YELLOW); *KETONES,URINE NEGATIVE (NEGATIVE); *UROBILINOGEN,URINE 0.2 E.U./dl (NORMAL); LEUKOCYTE ESTERASE ,URINE NEGATIVE (NEGATIVE); NITRITE, URINE NEGATIVE (NEGATIVE); UGLUCOSE TRACE (NEGATIVE)
[2022-11-10] MEDS ORDERED: HYDROMORPHONE 1 MG/1 ML DISP.SYRIN IV ONE (09:45)
[2022-11-10] MEDS ORDERED: POLY17PO4 PO (09:47)
[2022-11-10] MEDS ORDERED: HYDROMORPHONE 1 MG/1 ML DISP.SYRIN ONE (09:55)
--- NOTE | 2022-11-10 10:01 | NUR ---
patient condition stable lab, ct WNL d/c home with instructions after care reviewed understood left er via self ambulatory with steady gait.
[2022-11-10 10:03] VITALS: BP 130/60; TEMP 98; O2SAT 100
[2022-11-10 10:26] LABS: *AMPHETAMINE, URINE NEGATIVE (NEGATIVE); *CANNABINOID, URINE POSITIVE (NEGATIVE); *COCCAINE, URINE NEGATIVE (NEGATIVE); *PHENCYCLIDINE SCREEN,URINE NEGATIVE (NEGATIVE)
[2022-11-10 10:38] LABS: *BLOOD, URINE TRACE (NEGATIVE)
[2022-11-10 10:58] LABS: BACTERIA,URINE FEW /HPF (NONE SEEN); CALCIUM OXALATE CRYSTALS,UR FEW /HPF (NONE SEEN); RBC,URINE 0-3 /HPF (0-3); SQUAMOUS EPITHELIAL CELL,UR FEW /HPF (NONE SEEN); WBC,URINE NONE SEEN /HPF (0-3)
[2022-11-11 00:19] LABS: VENT MODE, VBG room air
== END 2022-11-10 10:34 | disposition home or self-care (01) ==
LOC: ER 07:25
DX: G89.29 Other chronic pain (principal); R10.9 Unspecified abdominal pain; E11.9 Type 2 diabetes mellitus without complications; F12.10 Cannabis abuse, uncomplicated; Z79.4 Long term (current) use of insulin; Z79.2 Long term (current) use of antibiotics; Z79.899 Other long term (current) drug therapy
CPT/HCPCS: 80076; 80048; 81001; 82009; 82270; 83690; 85025; 36415; 93005; 74177; 99285; 96361; 96374; 96375; 80320; 80307; 36600; J3490 ×2; J1200; J2405; Q9967; J1170; J2270; J7040; A4663; A9150; G0480

== ENCOUNTER 2023-02-20 14:23 | Emergency (ER) | payer OTHER ==
[~2023-02-20] VITALS: Ht 180.3 cm; Wt 72.6 kg
[~2023-02-20 14:23] MED LIST changes: +PANT20TA2 PO; +POLY17PO4 PO
[2023-02-20] MEDS ORDERED: ONDANSETRON 4 MG/2 ML VIAL ONE (14:40)
[2023-02-20] MEDS ORDERED: IV NORMAL SALINE 1000 ML BAG IV ONE (14:45)
[2023-02-20] MEDS ORDERED: ONDANSETRON 4 MG/2 ML VIAL IV ONE (14:45)
[2023-02-20 14:47] VITALS: O2SAT 98
== END 2023-02-20 15:15 | disposition left against medical advice (07) ==
LOC: ER 14:25
DX: R10.9 Unspecified abdominal pain (principal); R07.89 Other chest pain; E11.9 Type 2 diabetes mellitus without complications; Z76.5 Malingerer [conscious simulation]; Z79.4 Long term (current) use of insulin; Z79.899 Other long term (current) drug therapy
CPT/HCPCS: 99283; 71045; 93005; J2405; J7040; A4606; A4663